=== PATIENT | female | born 1950 | race Two or more races ===

== ENCOUNTER 2023-04-16 13:27 | Emergency (ER) | payer OTHER ==
[~2023-04-16] VITALS: Ht 172.7 cm; Wt 80.7 kg
[~2023-04-16 13:27] MED LIST: ATORVASTATIN CA20 MG; SYNTHROID50 MCG; ZETIA10 MG
[2023-04-16] MEDS ORDERED: ROSUVASTATIN CAL5 MG (14:07)
== END 2023-04-16 17:31 | disposition home or self-care (01) ==
LOC: ER 13:27
DX: B02.8 Zoster with other complications (principal); Z91.040 Latex allergy status; Z88.6 Allergy status to analgesic agent

== ENCOUNTER 2025-03-21 07:16 | Outpatient (CLI) | payer OTHER ==
[~2025-03-21 07:16] MED LIST changes: +ROSUVASTATIN CAL5 MG
== END 2025-03-21 07:17 | disposition home or self-care (01) ==
LOC: NUCLEAR 07:16
PROVIDERS: ATTEND Internal Medicine Hematology & Oncology
DX: M85.80 Other specified disorders of bone density and structure, unspecified site (principal); C79.51 Secondary malignant neoplasm of bone
CPT/HCPCS: 78306; A9503